=== PATIENT | female | born 1945 | race Asian ===

== ENCOUNTER 2018-06-04 14:27 | Emergency (ER) | payer MEDICARE, BC ==
[~2018-06-04] VITALS: Ht 160 cm; Wt 75.3 kg
[~2018-06-04 14:27] MED LIST: CLONIDINE HCL0.1 MG PO; GLIMEPIRIDE2 MG PO; HYDROXYZINE HCL25 MG PO; METFORMIN HCL500 M2 PO; PANTOPRAZOLE SO40 MG PO; PLAVIX75 MG PO; SENOKOT-S TABL1 EACH PO; SINGULAIR10 MG PO; TRIBENZOR 40-51 EAC1 PO; VESICARE5 MG PO; ZANTAC 7575 MG PO; ZOLPIDEM TARTRA10 MG PO
[2018-06-04] MEDS ORDERED: CLONIDINE HCL 0.2 MG TAB PO ONE (15:00)
--- NOTE | 2018-06-04 15:33 | Diagnostic Imaging Report ---
Radiographs of the right lower leg - 2 views HISTORY: Pain COMPARISON: None available. FINDINGS: Bones: Questionable nondisplaced distal right fibular fracture. Osseous alignment is within normal limits. Joints: Scattered degenerative change. Soft tissues: The soft tissues appear unremarkable. IMPRESSION: Questionable nondisplaced distal right fibular fracture. Ankle radiographs recommended. Signed by: Dr. Jorge Chapman M.D. on 06/04/2018 3:29 PM
--- NOTE | 2018-06-04 16:39 | Diagnostic Imaging Report ---
Radiographs of the right ankle - 3 views HISTORY: Pain COMPARISON: Radiographs of the lower leg from the same day FINDINGS: Bones: No acute displaced fracture. Osseous alignment is within normal limits. Joints: Chronic appearing deformity of the medial malleolus and distal fibula. Scattered degenerative change. Small inferior and posterior calcaneal bone spurs. Soft tissues: Mild soft tissue swelling. IMPRESSION: Chronic appearing deformity of the medial malleolus and distal fibula. Scattered degenerative change. Mild soft tissue swelling. Signed by: Dr. Jorge Chapman M.D. on 06/04/2018 4:35 PM
[2018-06-04] MEDS ORDERED: ULTRAM50 MG PO (17:01)
== END 2018-06-04 18:10 | disposition home or self-care (01) ==
LOC: ER 14:27
DX: M79.661 Pain in right lower leg (principal); S82.54XA Nondisplaced fracture of medial malleolus of right tibia, initial encounter for closed fracture; S82.491A Other fracture of shaft of right fibula, initial encounter for closed fracture; I10 Essential (primary) hypertension; E11.9 Type 2 diabetes mellitus without complications; Z86.73 Personal history of transient ischemic attack (TIA), and cerebral infarction without residual deficits
CPT/HCPCS: 93971; 99284

== ENCOUNTER → 2018-08-31 | Outpatient (CLI) | payer MEDICARE, BC ==
[~2018-08-31] MED LIST changes: +ULTRAM50 MG PO
--- NOTE | 2018-08-31 18:03 | Diagnostic Imaging Report ---
EXAMINATION: Head CT HISTORY: Frontal headaches, history of prior stroke COMPARISON: None. TECHNIQUE: Multidetector axial images were obtained without contrast from the foramen magnum to the vertex . The images were reconstructed using brain and bone algorithms. Thin section brain images were reformatted into coronal and sagittal planes. Image quality: Motion/streaking artifact limits the evaluation of the skull base and posterior cranial fossa. Dose modulation, iterative reconstruction, and/or weight based adjustment of the mA/kV was utilized to reduce the radiation dose to as low as reasonably achievable. FINDINGS: Parenchyma: 1. Cavitating encephalomalacia in the left putamen, likely the sequela from remote infarction, there is also adjacent left frontal bhandari radiata white matter hypodensity, related to associated gliosis. 2. No mass or hemorrhage. No CT evidence of acute territorial vascular insult. Extra-axial spaces:No abnormal density. No extra-axial fluid collections Brain volume: Normal for age. Ventricles: No hydrocephalus or displacement. Arteries: No density suggestive of thrombus. Dural sinuses: No abnormal density. Extra-axial spaces: No abnormal density. Foramen magnum: No mass, Chiari malformation, or basilar invagination. Sella: No obvious mass. Paranasal/mastoid sinuses: Imaged portions unremarkable. Skull/Scalp: No lytic or blastic lesions. No fractures. IMPRESSION: 1. No acute intracranial abnormalities. 2. 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 Signed by: Dr. Aubree Resendiz M.D. on 08/31/2018 6:00 PM
== END ==
LOC: CT 16:18
DX: G45.9 Transient cerebral ischemic attack, unspecified (principal)
CPT/HCPCS: 70450; 93880

== ENCOUNTER 2019-04-27 20:52 | Inpatient (IN) | payer MEDICARE, BC ==
[~2019-04-27] VITALS: Ht 160 cm; Wt 79.5 kg
--- OUTSIDE RECORDS SUMMARY | 2019-04-27 20:54 | XMS REPORT | Clinical Summary ---
Author Author RAMO [facility] Address Unknown Phone Unavailable Care Team Providers Care Vessel Specialist Name Role Phone PCP Unavailable Allergies Comments Active Allergy Reactions Severity Noted Date Adhesive 10/27/2018 Medications End Date Status Medication Sig Dispensed Refills Start Date Active pantoprazole (PROTONIX) Take 20 mg by 0 20 MG tablet mouth daily. Active metFORMIN (GLUCOPHAGE) Take 1,000 mg 0 1000 MG tablet by mouth 2 (two) times daily with breakfast and dinner. Active atorvastatin (LIPITOR) 10 Take 10 mg by 0 MG tablet mouth daily. Active clopidogrel (PLAVIX) 300 Take 300 mg 0 mg Tab by mouth once. Active glimepiride (AMARYL) 1 MG Take 1 mg by 0 tablet mouth every morning before breakfast. 11/06/2018 acetaminophen-codeine Take 1-2 30 tablet 0 (TYLENOL #3) 300-30 mg tablets by 9 per tablet mouth every 6 (six) hours as needed for up to 10 days. Max Daily Amount: 8 tablets 11/06/2018 cyclobenzaprine Take 1 tablet 20 tablet 0 (FLEXERIL) 10 MG tablet (10 mg total) 9 by mouth 2 (two) times daily as needed for Muscle spasms for up to 10 days. Active Problems Not on file Encounters Care Team Description Date Type Specialty Justina Rhodes MD Foot sprain, left, initial encounter (Primary Dx); Fall in home, initial encounter; Sprain of left knee, unspecified ligament, initial encounter 10/27/2018 Emergency Emergency Medicine 10/27/2018 Travel after 04/26/2018 Social History Date Tobacco Use Types Packs/Day Years Used Never Smoker Smokeless Tobacco: Never Used Alcohol Use Drinks/Week oz/Week Comments No Alcohol Habits Answer Date Recorded How often do you have a drink containing alcohol? Never 10/27/2018 How many drinks containing alcohol do you have on Not asked a typical day when you are drinking? How often do you have six or more drinks on one Not asked occasion? Sex Assigned at Date Recorded Not on file Industry Job Start Date Occupation Not on file Not on file Not on file Travel End Travel History Travel Start No recent travel history available. Last Filed Vital Signs Time Taken Vital Sign Reading 10/27/2018 5:00 AM INSTRUMENTATION AND CONTROLS TECHNICIAN Blood Pressure 169/79 10/27/2018 5:00 AM INSTRUMENTATION AND CONTROLS TECHNICIAN Pulse 70 10/27/2018 12:40 AM INSTRUMENTATION AND CONTROLS TECHNICIAN Temperature 36.6 C (97.9 F) 10/27/2018 5:00 AM INSTRUMENTATION AND CONTROLS TECHNICIAN Respiratory Rate 16 10/27/2018 5:00 AM INSTRUMENTATION AND CONTROLS TECHNICIAN Oxygen Saturation 98% - Inhaled Oxygen - Concentration 10/27/2018 12:34 AM INSTRUMENTATION AND CONTROLS TECHNICIAN Weight 74.8 kg (165 lb) 10/27/2018 12:34 AM INSTRUMENTATION AND CONTROLS TECHNICIAN Height 160 cm (5' 3") 10/27/2018 12:34 AM INSTRUMENTATION AND CONTROLS TECHNICIAN Body Mass Index 29.23 Plan of Treatment Not on file Procedures Comments Procedure Name Priority Date/Time Associated Diagnosis XR KNEE LEFT COMPLETE (4 STAT 10/27/2018 VIEWS) 2:27 AM INSTRUMENTATION AND CONTROLS TECHNICIAN XR FOOT LEFT 3 VIEW STAT 10/27/2018 2:27 AM INSTRUMENTATION AND CONTROLS TECHNICIAN POCT-GLUCOSE METER Routine 10/27/2018 12:46 AM INSTRUMENTATION AND CONTROLS TECHNICIAN after 04/26/2018 Results * XR foot 3 views left (10/27/2018 2:27 AM INSTRUMENTATION AND CONTROLS TECHNICIAN) Specimen Narrative Performed At FINAL REPORT [facility] RAD, FOOT, MIN 3 VIEWS, LEFT CLINICAL INDICATION:FALL COMPARISON: None FINDINGS: Frontal, lateral and oblique views of the left foot were obtained. There is no acute fracture or dislocation.There are degenerative changes of the mid foot.There is a plantar calcaneal spur.There is achilles tendon enthesopathy. IMPRESSION: No acute fracture or dislocation. Signed: Malathi Mock MD Report Verified Date/Time:10/27/2018 02:20:04 Reading Location: [address] Body Reading Room Procedure Note Interface, External Ris In - 10/27/2018 2:27 AM INSTRUMENTATION AND CONTROLS TECHNICIAN FINAL REPORT RAD, FOOT, MIN 3 VIEWS, LEFT CLINICAL INDICATION: FALL COMPARISON: None FINDINGS: Frontal, lateral and oblique views of the left foot were obtained. There is no acute fracture or dislocation. There are degenerative changes of the mid foot. There is a plantar calcaneal spur. There is achilles tendon enthesopathy. IMPRESSION: No acute fracture or dislocation. Signed: Malathi Mock MD Report Verified Date/Time: 10/27/2018 02:20:04 Reading Location: [address] Body Reading Room Performing Organization Address City/State/Zipcode Phone Number GE RIS * XR knee complete 4 views left (10/27/2018 2:27 AM INSTRUMENTATION AND CONTROLS TECHNICIAN) Specimen Narrative Performed At FINAL REPORT [facility] RAD, KNEE, COMPLETE (4 VIEWS), LEFT CLINICAL INDICATION:FALL COMPARISON: None FINDINGS: Frontal, lateral and oblique views of the left knee were obtained. There is no acute fracture dislocation. The joint spaces are maintained. There are tiny periarticular osteophytes. There is no suprapatellar effusion. IMPRESSION: No acute fracture or dislocation. Signed: Malathi Mock MD Report Verified Date/Time:10/27/2018 02:30:36 Reading Location: [address] Body Reading Room Procedure Note Interface, External Ris In - 10/27/2018 2:32 AM INSTRUMENTATION AND CONTROLS TECHNICIAN FINAL REPORT RAD, KNEE, COMPLETE (4 VIEWS), LEFT CLINICAL INDICATION: FALL COMPARISON: None FINDINGS: Frontal, lateral and oblique views of the left knee were obtained. There is no acute fracture dislocation. The joint spaces are maintained. There are tiny periarticular osteophytes. There is no suprapatellar effusion. IMPRESSION: No acute fracture or dislocation. Signed: Malathi Mock MD Report Verified Date/Time: 10/27/2018 02:30:36 Reading Location: [address] Body Reading Room Performing Organization Address City/State/Zipcode Phone Number GE RIS * POC-Glucose meter (10/27/2018 12:46 AM INSTRUMENTATION AND CONTROLS TECHNICIAN) POC-Glucose Meter 225 (H)Comment: TESTED AT [facility] 70 - 110 mg/dL [facility] [address] [facility] [address] Specimen Blood Performing Organization Address City/State/Zipcode Phone Number [facility] [address] [place] [address] [facility] after 04/26/2018 Insurance Payer Benefit Subscriber ID Type Phone Address Plan / Group MEDICARE MEDICARE A xxxxxxxxxxx Medicare B BLUE CROSS/BLUE SHIELD BCBS OS xxxxxxxxxxxx PPO [phone] [address] POS/PPO/[place] [address] O
--- OUTSIDE RECORDS SUMMARY | 2019-04-27 20:54 | XMS REPORT ---
Author Author [facility] Address Unknown Phone Unavailable Care Team Providers Care Director Gift Name Role Phone MALIKA EARLY Unavailable Unavailable Steve POST Unavailable Unavailable Problems This patient has no known problems. Allergies, Adverse Reactions, Alerts This patient has no known allergies or adverse reactions. Medications This patient has no known medications. Results Test Description Test Time Test Comments Text Results Atomic Results Result Comments RAD, KNEE, COMPLETE (4 VIEWS), LEFT 2018-10-27 02:30:00 Reason for exam:->FALL FINAL REPORT RAD, KNEE, COMPLETE (4 VIEWS), LEFT CLINICAL INDICATION: FALL COMPARISON: None FINDINGS: Frontal, lateral and oblique views of the left knee were obtained. There is no acute fracture dislocation. The joint spaces are maintained. There are tiny periarticular osteophytes. There is no suprapatellar effusion. IMPRESSION: No acute fracture or dislocation. Signed: Malathi Mock Verified Date/Time: 10/27/2018 02:30:36 Reading Location: [address] Body Reading Room , FOOT, MIN 3 VIEWS, LEFT 2018-10-27 02:20:00 Reason for exam:->FALL FINAL REPORT RAD, FOOT, MIN 3 VIEWS, LEFT CLINICAL INDICATION: FALL COMPARISON: None FINDINGS: Frontal, lateral and oblique views of the left foot were obtained. There is no acute fracture or dislocation. There are degenerative changes of the mid foot. There is a plantar calcaneal spur. There is achilles tendon enthesopathy. IMPRESSION: No acute fracture or dislocation. Signed: Malathi Mock Verified Date/Time: 10/27/2018 02:20:04 Reading Location: [address] Body Reading Room -GLUCOSE METER 2018-10-27 00:47:00 POC-GLUCOSE METER (BEAKER) (test lflf=[id number]) 225 mg/dL 70-110 TESTED AT [facility] [place] [address] CT BRAIN [id number] 17:58:00 [facility] [address] [address] Patient Name: DI YATES MR #: [id number] : 1945 Age/Sex: 73/F Req #: [id number] Adm Physician: Ordered by: MALIKA EARLY MD Report #: [id number] Location: CT Room/Bed: Procedure: [id number] CT/CT BRAIN WO Exam Date: Exam Time: REPORT STATUS: Signed EXAMINATION: Head CT H ISTORY: Frontal headaches, history of prior stroke COMPARISON: None. TECHNIQ UE: Multidetector axial images were obtained without contrast from the foramen magnum to the vertex . The images were reconstructed using brain and bone alg orithms. Thin section brain images were reformatted into coronal and sagittal planes. Image quality: Motion/streaking artifact limits the evaluation of the skull base and posterior cranial fossa. Dose modulation, iterative reconstr uction, and/or weight based adjustment of the mA/kV was utilized to reduce the radiation dose to as low as reasonably achievable. FINDINGS: Parenchyma: 1. Cavitating encephalomalacia in the left putamen, likely the sequela from remote infarction, there is also adjacent left frontal bhandari ra diata white matter hypodensity, related to associated gliosis. 2. No mass o r hemorrhage. No CT evidence of acute territorial vascular insult. Extra-axial spaces:No abnormal density. No extra-axial fluid collections Brain volume: Normal for age. Ventricles: No hydrocephalus or displ acement. Arteries: No density suggestive of thrombus. Dural sin uses: No abnormal density. Extra-axial spaces: No abnormal density. Foramen magnum: No mass, Chiari malformation, or basilar invagination. Sella: No obvious mass. Paranasal/mastoid sinuses: Imaged portions u nremarkable. Skull/Scalp: No lytic or blastic lesions. No fractures. IMPRESSION: 1. No acute intracranial abnormalities. 2. Chronic infa rct in the left putamen an adjacent bhandari radiata white matter. Signed b y: Dr. Joseph Resendiz M.D. on 08/31/2018 6:00 PM Dictated By: JOSEPH Rodríguez 99 Transcribed By: ROGELIO BOUDREAUX on 08/31/181799 COPY TO: MALIKA EARLY MD ANKLE 3 + VIEWS [id number] 16:32:00 [address] [address] Patient Name: DI YATES MR #: [id number] : 1945 Age/Sex: 73/F Req #: [id number] Adm Physician: Ordered by: ZIA POST MD Report #: [id number] Location: ER Room/Bed: Procedure: [id number] DX/ANKLE 3 + VIEWS RIGHT Exam Date: 06/04/18 Exam Time: 1618 REPORT STATUS: S igned Radiographs of the right ankle - 3 views HISTORY: Pain COMPARIS ON: Radiographs of the lower leg from the same day FINDINGS: Bones: No acute displaced fracture. Osseous alignment is within normal limits. Joints: Chronic appearing deformity of the medial malleolus and distal fibu la. Scattered degenerative change. Small inferior and posterior calcaneal bone spurs. Soft tissues: Mild soft tissue swelling. IMPRESSION: Chronic appearing deformity of the medial malleolus and distal fibula. Sca ttered degenerative change. Mild soft tissue swelling. Signed by: Dr. Jorge Bowman M.D. on 06/04/2018 4:35 PM Dictated By: JORGE BOWMAN MD, MD 163 Transcribed By: ANNA on 06/04/181634 COPY TO: ZIA POST MD LOWER LEG [id number] 15:28:00 [address] [place] [address] Patient Name: DI YATES MR #: [id number] : 1945 Age/Sex: 73/F Req #: [id number] Adm Physician: Ordered by: ZIA POST MD Report #: [id number] Location: ER Room/Bed: Procedure: [id number] DX/LOWER LEG RIGHT Exam Date: 06/04/18 Exam Time: 1510 REPORT STATUS: Signed Radiographs of the right lower leg - 2 views HISTORY: Pain COMPARISON: None available. FINDINGS: Bones: Questionable nondisplaced distal right fibular fracture. Osseous alignment is within normal limits. Join ts: Scattered degenerative change. Soft tissues: The soft tissues appea r unremarkable. IMPRESSION: Questionable nondisplaced distal right fi bular fracture. Ankle radiographs recommended. Signed by: Dr. Jorge Bowman M.D. on 06/04/2018 3:29 PM Dictated By: JORGE BOWMAN MD, MD Electronica lly Signed By: JORGE BOWMAN MD, MD on 06/04/18 1529 Transcribed By: ANNA on 06/04/18 1529 COPY TO: ZIA POST MD
[2019-04-27] MEDS ORDERED: ASPIRIN 81 MG CHEW TAB PO ONE ×2 (21:00→22:15)
[2019-04-27 21:30] LABS: BASOPHILS % 0.3 % (0.0-1.0); BILIRUBIN,URINE NEGATIVE (NEGATIVE); CLARITY,URINE SL CLOUDY (CLEAR); COLOR,URINE YELLOW (YELLOW); EOSINOPHILS # (AUTO) 0.1 (0.0-0.4); EOSINOPHILS % 1.6 % (0.0-6.0); HEMATOCRIT 33.1 % (34.2-44.1); HEMOGLOBIN 11.1 g/dL (12.0-16.0); KETONES,URINE NEGATIVE (NEGATIVE); LEUKOCYTE ESTERASE ,URINE NEGATIVE (NEGATIVE); LYMPHOCYTES # (AUTO) 2.2 (1.0-3.2); LYMPHOCYTES % 29.2 % (18.0-39.1); MEAN CORPUSCULAR HEMOGLOBIN 28.4 pg (28-32); MEAN CORPUSCULAR HGB CONC 33.5 g/dL (31-35); MEAN CORPUSCULAR VOLUME 84.7 fL (81-99); MONOCYTES # (AUTO) 0.6 (0.2-0.8); NEUTROPHILS # (AUTO) 4.5 (2.1-6.9); NEUTROPHILS % 60.5 % (38.7-80.0); NITRITE,URINE NEGATIVE (NEGATIVE); PLATELET COUNT 264 x10e3/uL (140-360); PROTEIN,URINE DIPSTICK 1+ (NEGATIVE); RED BLOOD COUNT 3.91 x10e6/uL (3.6-5.1); RED CELL DISTRIBUTION WIDTH 13.2 % (11.7-14.4); URINE UROBILINOGEN 0.2 mg/dL (0.2 - 1)
[2019-04-27 21:44] LABS: BACTERIA,URINE FEW /HPF; EPITHELIAL CELLS,URINE FEW /LPF; WBC,URINE (MAN) 0-5 /HPF (0-5)
[2019-04-27 21:45] LABS: ALBUMIN 3.8 g/dL (3.5-5.0); ALBUMIN/GLOBULIN RATIO 1.2 (0.8-2.0); ANION GAP 16.5 mmol/L (8-16); CREATININE, SERUM 1.01 mg/dL (0.57-1.11); POTASSIUM 3.5 mmol/L (3.5-5.1)
[2019-04-27 21:51] LABS: CREATINE KINASE MB 2.7 ng/mL (0-5.0)
--- NOTE | 2019-04-27 22:03 | Diagnostic Imaging Report ---
A single frontal view of the chest. HISTORY: Chest pain COMPARISON: None available. DISCUSSION: Portable technique, limits sensitivity of the exam. Soft tissue attenuation partially limits sensitivity of the exam. Overlying monitoring leads. Tubes/Lines: None Lungs and pleura: The lungs are well inflated. No evidence of a consolidative pneumonia or pulmonary alveolar edema. No definite pleural effusion or pneumothorax is identified. Heart and mediastinum: The cardiac silhouette and central pulmonary vasculature appear(s) mildly prominent. Bones and soft tissues: Mild chronic appearing deformity of the right distal clavicle, correlate for history of remote fracture. IMPRESSION: 1. Borderline cardiomegaly and mild central pulmonary vascular congestion. 2. Mild chronic appearing deformity of the right distal clavicle, correlate for history of remote fracture. Signed by: Dr. Oniel Sharma D.O., M.M.M. on 04/27/2019 10:00 PM
[2019-04-27] MEDS ORDERED: DEXTROSE 50% SYRINGE 50 ML IV PRN (22:15)
[2019-04-27] MEDS ORDERED: ONDANSETRON HCL INJ 2MG/ML 2ML 2 MG/ML VIAL IV PRN (22:15)
[2019-04-27] MEDS ORDERED: SODIUM CHLORIDE FLUSH 10 ML SYR INJ PRN (22:15)
--- OUTSIDE RECORDS SUMMARY | 2019-04-27 22:35 | XMS REPORT | Clinical Summary ---
Author Author RAMO [facility] Address Unknown Phone Unavailable Care Team Providers Care Wood Form Builder Name Role Phone PCP Unavailable Allergies Comments [...] Taken Vital Sign Reading 10/27/2018 5:00 AM CERTIFIED PARALEGAL Blood Pressure 169/79 10/27/2018 5:00 AM CERTIFIED PARALEGAL Pulse 70 10/27/2018 12:40 AM CERTIFIED PARALEGAL Temperature 36.6 C (97.9 F) 10/27/2018 5:00 AM CERTIFIED PARALEGAL Respiratory Rate 16 10/27/2018 5:00 AM CERTIFIED PARALEGAL Oxygen Saturation 98% - Inhaled Oxygen - Concentration 10/27/2018 12:34 AM CERTIFIED PARALEGAL Weight 74.8 kg (165 lb) 10/27/2018 12:34 AM CERTIFIED PARALEGAL Height 160 cm (5' 3") 10/27/2018 12:34 AM CERTIFIED PARALEGAL Body Mass Index 29.23 Plan of Treatment Not on file Procedures Comments Procedure Name Priority Date/Time Associated Diagnosis XR KNEE LEFT COMPLETE (4 STAT 10/27/2018 VIEWS) 2:27 AM CERTIFIED PARALEGAL XR FOOT LEFT 3 VIEW STAT 10/27/2018 2:27 AM CERTIFIED PARALEGAL POCT-GLUCOSE METER Routine 10/27/2018 12:46 AM CERTIFIED PARALEGAL after 04/26/2018 Results * XR foot 3 views left (10/27/2018 2:27 AM CERTIFIED PARALEGAL) Specimen Narrative Performed At FINAL REPORT [facility] RAD, FOOT, MIN 3 VIEWS, LEFT CLINICAL INDICATION:FALL COMPARISON: None FINDINGS: Frontal, lateral and oblique views of the left foot were obtained. There is no acute fracture or dislocation.There are degenerative changes of the mid foot.There is a plantar calcaneal spur.There is achilles tendon enthesopathy. IMPRESSION: No acute fracture or dislocation. Signed: Malathi Mock MD Report Verified Date/Time:10/27/2018 02:20:04 Reading Location: [address] Body Reading Room Procedure Note Interface, External Ris In - 10/27/2018 2:27 AM CERTIFIED PARALEGAL FINAL REPORT RAD, FOOT, MIN 3 VIEWS, [...] Report Verified Date/Time: 10/27/2018 02:20:04 Reading Location: [address] Body Reading Room Performing Organization Address City/State/Zipcode Phone Number GE RIS * XR knee complete 4 views left (10/27/2018 2:27 AM CERTIFIED PARALEGAL) Specimen Narrative Performed At FINAL REPORT [facility] RAD, KNEE, COMPLETE (4 VIEWS), LEFT CLINICAL INDICATION:FALL COMPARISON: None FINDINGS: Frontal, lateral and oblique views of the left knee were obtained. There is no acute fracture dislocation. The joint spaces are maintained. There are tiny periarticular osteophytes. There is no suprapatellar effusion. IMPRESSION: No acute fracture or dislocation. Signed: Malathi Mock MD Report Verified Date/Time:10/27/2018 02:30:36 Reading Location: [address] Body Reading Room Procedure Note Interface, External Ris In - 10/27/2018 2:32 AM CERTIFIED PARALEGAL FINAL REPORT RAD, KNEE, COMPLETE (4 VIEWS), LEFT CLINICAL INDICATION: FALL COMPARISON: None FINDINGS: Frontal, lateral and oblique views of the left knee were obtained. There is no acute fracture dislocation. The joint spaces are maintained. There are tiny periarticular osteophytes. There is no suprapatellar effusion. IMPRESSION: No acute fracture or dislocation. Signed: Malathi Mock MD Report Verified Date/Time: 10/27/2018 02:30:36 Reading Location: [address] Body Reading Room Performing Organization Address City/State/Zipcode Phone Number GE RIS * POC-Glucose meter (10/27/2018 12:46 AM CERTIFIED PARALEGAL) POC-Glucose Meter 225 (H)Comment: TESTED AT [facility] 70 - 110 mg/dL [facility] [address] [facility] [address] Specimen Blood Performing Organization Address City/State/Zipcode Phone Number [facility] [address] [place] [address] [facility] after 04/26/2018 Insurance Payer Benefit Subscriber ID Type Phone Address Plan / Group MEDICARE MEDICARE A xxxxxxxxxxx Medicare B BLUE CROSS/BLUE SHIELD BCBS OS xxxxxxxxxxxx PPO [phone] [address] POS/PPO/[place] [address] O
[2019-04-27 22:39] VITALS: BP 146/70
[2019-04-27] MEDS: FAMOTIDINE 20 MG TAB PO SCH (22:58)
[2019-04-28] VITALS (15 sets, daily range): BP systolic 131–217; BP diastolic 62–88
[2019-04-28] MEDS: SODIUM CHLORIDE 0.9% 1000ML 1,000 ML IV SCH ×4 (00:15→19:27)
--- NOTE | 2019-04-28 06:45 | NUR ---
ROUNDED WITH FLATLOCK SEWING MACHINE OPERATOR NURSE, PATIENT RESTING COMFORTABLY AND IN NO DISTRESS. CALL SOLO WITHIN REACH AND BED IN LOWEST POSITION.
--- NOTE | 2019-04-28 07:01 | NUR ---
BEDSIDE REPORT GIVEN TO HEMA CHA AT THIS TIME.
[2019-04-28 07:04] LABS: BASOPHILS % 0.3 % (0.0-1.0); EOSINOPHILS # (AUTO) 0.2 (0.0-0.4); EOSINOPHILS % 2.7 % (0.0-6.0); HEMATOCRIT 30.3 % (34.2-44.1); LYMPHOCYTES # (AUTO) 1.9 (1.0-3.2); LYMPHOCYTES % 32.6 % (18.0-39.1); MEAN CORPUSCULAR HEMOGLOBIN 28.1 pg (28-32); MEAN CORPUSCULAR VOLUME 85.1 fL (81-99); MONOCYTES # (AUTO) 0.5 (0.2-0.8); MONOCYTES % 8.8 % (4.4-11.3); NEUTROPHILS # (AUTO) 3.2 (2.1-6.9); NEUTROPHILS % 55.3 % (38.7-80.0); PLATELET COUNT 226 x10e3/uL (140-360); RED BLOOD COUNT 3.56 x10e6/uL (3.6-5.1); RED CELL DISTRIBUTION WIDTH 13.1 % (11.7-14.4)
[2019-04-28] MEDS: INSULIN REGULAR, HUMAN 100 UNIT/1 ML 3ML VIAL SQ SCH ×4 (07:30→20:25)
[2019-04-28 07:47] LABS: ALANINE AMINOTRANSFERASE 26 IU/L (0-55); ALBUMIN 3.2 g/dL (3.5-5.0); ALBUMIN/GLOBULIN RATIO 1.2 (0.8-2.0); ALKALINE PHOSPHATASE 41 IU/L (40-150); ANION GAP 11.5 mmol/L (8-16); BLOOD UREA NITROGEN 17 mg/dL (7-26); BUN/CREATININE RATIO 19 (6-25); CALCIUM 8.5 mg/dL (8.4-10.2); CARBON DIOXIDE 24 mmol/L (22-29); CHLORIDE 104 mmol/L (98-107); CHOL/HDL RATIO 4.3 (3.0-3.6); CHOLESTEROL 253 MD/DL (0-199); CREATININE, SERUM 0.91 mg/dL (0.57-1.11); EST GLOMERULAR FILTRATION RATE > 60 ML/MIN (60-); GLUCOSE 246 mg/dL (74-118); HDL CHOLESTEROL 59 MG/DL (40-60); LDL CHOLESTEROL 161 MG/DL (60-130); POTASSIUM 3.5 mmol/L (3.5-5.1); SODIUM 136 mmol/L (136-145); TRIGLYCERIDES 166 MG/DL (0-149)
[2019-04-28 07:59] LABS: CREATINE KINASE MB 1.7 ng/mL (0-5.0)
[2019-04-28] MEDS ORDERED: LIDOCAINE HCL 2% LOCAL 20 ML VIAL ONE (08:18)
[2019-04-28] MEDS ORDERED: MIDAZOLAM HCL 2 MG/2 ML VIAL ONE (08:18)
[2019-04-28] MEDS ORDERED: FENTANYL CITRATE/PF 100MCG/2 ML INJ ONE (08:18)
[2019-04-28] MEDS ORDERED: SODIUM CHLORIDE 0.9% 1000ML 1,000 ML ONE (08:19)
[2019-04-28] MEDS ORDERED: HEPARIN SOD/SOD CHLORIDE 2,000 ML ONE (08:19)
[2019-04-28] MEDS ORDERED: IOPAMIDOL 370 MG/ML 200 ML INFUS..BTL INJ ONE (08:19)
--- NOTE | 2019-04-28 08:40 | NUR ---
PATIENT ALERT AND ORIENTED, LEAVING FOR PARAPROFESSIONAL AIDE AT THIS TIME [facility] BED.
[2019-04-28] MEDS: ASPIRIN 81 MG ENTERIC COATED PO SCH (08:56)
[2019-04-28] MEDS ORDERED: BIVALRIUDIN 250 MG/VIAL VIAL IV ONE (09:16)
[2019-04-28] MEDS ORDERED: SODIUM CHLORIDE 0.9% 50ML 50 ML ONE (09:16)
[2019-04-28] MEDS ORDERED: CLOPIDOGREL BISULFATE 75 MG TAB ONE (10:03)
[2019-04-28] MEDS ORDERED: ASPIRIN 81 MG CHEW TAB ONE (10:03)
[2019-04-28] MEDS ORDERED: NITROGLYCERIN 400 MCG/SPRAY 4.9 GM BTL ONE (10:07)
--- NOTE | 2019-04-28 10:10 | NUR ---
1010 bedside report received from HEMA Grossman. Alert oriented and appropriate, PERRLA, respirations even and unlabored to room air. Pulses x4 extremities equal and strong. Pedal pulses PT/DP XXXXX and marked. Cap fill brisk < 3 sec. Rt sheath 6fr intact no gross issues pain pallor pressure or dysrhythmia. [facility] Dr Rafy Niño stentx x2 RCA. Had episode in slab conditioner supervisor lisa to 30 HR with CP requiring nasal NTG spray x1 spontaneous HR to bradycardia w/o ectopics. Skin warm and dry integrity appears D/I. IV 20g to XXX presents healthy w/o s/s of infiltration or complaint. Abdomen soft and supple. pt offered toileting, Assist need to urinate . No personal affects with patient. No Family at bedside. Pt verbalizes understanding POC. Currently w/o complaint of pain or need. Recheck ACT 11am last act 179. zulma/hema
[2019-04-28] MEDS ORDERED: ZOLPIDEM TARTRATE 5 MG TAB PO PRN (10:15)
[2019-04-28] MEDS: FAMOTIDINE 20 MG TAB PO SCH ×2 (10:15→20:27)
[2019-04-28] MEDS ORDERED: CLONIDINE HCL 0.1 MG TAB PO PRN (10:15)
--- NOTE | 2019-04-28 10:45 | NUR ---
1045 sheath pull in progress [facility] Explosive Ordnance Disposal Manager pullerRolanda Rn Atropine at bedside. stable vs and ekg 1045 HR 53 182/99 1050 Hr 52 179/72 1055 HR 53 183/99 1100 HR 52 177/99 1105 HR 55 178/92 Report called to floor staff. Stasis achieved at 1105 down time till 505pm ds/rn
--- NOTE | 2019-04-28 11:05 | NUR ---
1105a Sheath pull completed .Stasis achieved. PPx4.(down time 1705pm) states CP 4/10 was 10/10 in Optometrist Assistant .NTG spray given x1 by Mila Grossman. [facility] completed with stentx2 DR Tello . Down time No gross issues pain, pallor, pressure or dysrhythmia.(Baseline 55-58HR) Rt groin gauze and wedge pressure dressing and Microfoam tape.Report phoned to staffing operations manager 106Rm and transported via Zoll monitor and RN x2.per bed. Pt did void 400cc in clear urine via bedpan.Pt understands flat time and importance. Aware of POC. Iv to left hand infusing w/o s/s infiltration. ds/rn
--- NOTE | 2019-04-28 11:20 | NUR ---
report received from cath lab tech, patient to arrive back to unit via hospital bed to be on bedrest for 6 hours ending at 1705.
[2019-04-28] MEDS: OLMESARTAN 20 MG TAB PO SCH (11:30)
[2019-04-28] MEDS: AMLODIPINE BESYLATE 5 MG TAB PO SCH (11:30)
--- NOTE | 2019-04-28 11:30 | NUR ---
patient arrived back to unit via hospital bed, alert and oriented. right groin bandage dry and in tact, area is soft and no hematoma noted. patient log rolled onto bed gamboa and returned to resting position. patient verbalized understanding for bedrest until 1705 and agrees to keep legs straight. call benton within reach and bed in lowest position.
[2019-04-28] MEDS: HYDROCODONE/APAP 5MG-325MG TAB PO PRN (12:00)
[2019-04-28 15:14] LABS: CREATINE KINASE MB 2.1 ng/mL (0-5.0)
--- NOTE | 2019-04-28 15:17 | Consultation ---
DATE OF CONSULTATION: Cardiac Consultation REASON FOR CONSULTATION: Chest pain. 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 The patient came for an evaluation in our office in February 2019. She is complaining of exertional angina with chest pressure and chest tightness despite being not very active secondary to her right body sided weakness. Her symptoms were progressively worse. She had on 03/03/2019, nuclear cardiac stress test, which showed the presence of moderate partially reversible inferolateral wall defect with normal left ventricular ejection fraction. The patient also during that study had motion artifact. Regardless, we treated the patient medically, she did well. She called me complaining of more chest pain. In view of that and the patient being on appropriate medication, and after discussion with her and her sister over the phone, the patient wants to proceed with cardiac catheterization because of progressively worse symptoms. The patient is scheduled, but then she needs to reschedule and yesterday, she showed in the emergency room complaining of severe chest pain, chest pressure, and chest tightness, admitted to Dr. Mariscal. Cardiac consultation is obtained. REVIEW OF SYSTEMS: GENERAL: Limited activity secondary to her stroke with poor exercise tolerance. HEENT: Occasional headache. Decreased hearing. PULMONARY AND CARDIAC: As per acute illness, class 3 shortness of breath, chest pressure, chest tightness, progressively worse, possible sleep apnea. No orthopnea. No paroxysmal nocturnal dyspnea. GI: No hematemesis. No melena. HEMATOLOGY: No easy bruising or bleeding. : No hematuria. MUSCULOSKELETAL: Back pain, knee pain. Peripheral vascular leg swelling and leg edema. Limited activity with possible claudication, possible back pain. NEUROLOGICAL: Back pain with radiculopathy, very abnormal gait, using a walker, right-sided body weakness. PAST MEDICAL HISTORY: 1. Diabetes mellitus. 2. CVA with residual right body sided weakness. 3. Hypertension. 4. Hyperlipidemia. 5. Back surgery x2. 6. Coronary artery disease with stent or some procedure done in 2014. She cannot recall details. SOCIAL HISTORY: The patient lives by herself. She is a retired business owner operator tanker truck driver. She is non-alcohol drinker. She stopped smoking in 1998. FAMILY HISTORY: Mother of complication of diabetes mellitus at age 76. She had "blood clot all over." Father at age 74 with myocardial infarction. One brother and 3 sisters, 1 healthy son. Her brother of myocardial infarction at age 58. Her sister is diabetic. HOME MEDICATIONS: 1. Plavix 75 mg a day. 2. Crestor 10 mg a day. 3. Fenofibrate 145 mg a day. 4. Benicar/amlodipine/hydrochlorothiazide 40/10/25 one tablet a day. 5. Metformin 1000 mg daily. 6. Glimepiride 2 mg a day. 7. Protonix 40 mg a day. PHYSICAL EXAMINATION: VITAL SIGNS: Height 5 feet 3 inches, weight of 154 pounds, blood pressure 140/60, heart rate of 50, and respiratory rate of 18. HEENT: Pupils are reactive. NECK: No elevation of jugular venous pulsation. CHEST: Decreased air entry and bilateral crackles. HEART: PMI 5th left intercostal space. Normal first and second heart sounds. ABDOMEN: Soft with good bowel sounds. EXTREMITIES: No cyanosis. No clubbing. No edema. NEUROLOGIC: Decreased hearing and right body sided weakness with limited movement and gait abnormality using a walker. LABORATORY DATA: Sodium of 136, potassium 3.5, BUN of 17, and creatinine of 0.9. White blood cell count of 5.8, hemoglobin of 10, hematocrit 30%, and platelet count of 226,000. Triglycerides of 166, cholesterol of 253, HDL of 55, and LDL of 161. IMPRESSION AND PLAN: 1. Known coronary artery disease, status post prior form of intervention in 2014 having angina. 2. Hypertension. 3. Diabetes mellitus. 4. History of stroke with right body sided weakness. 5. Hypercholesterolemia. 6. Limited activity. 7. Degenerative joint disease and pain of the lower extremities. 8. The patient admitted from the emergency room with worsening angina. Acute Coronary Syndrome We will proceed with cardiac catheterization. Procedure risks, benefits, and alternatives are discussed and explained. MD SETH Acharya/TOM /[id number] MTDD
[2019-04-28] MEDS: CLONIDINE HCL 0.1 MG TAB PO SCH ×2 (15:40→20:27)
[2019-04-28] MEDS: GLIMEPIRIDE 2 MG TAB PO SCH (17:00)
[2019-04-28] MEDS: METOPROLOL TARTRATE 25 MG TAB PO SCH (17:00)
[2019-04-28] MEDS: METFORMIN HCL 500 MG TAB CR PO SCH (17:00)
[2019-04-28] MEDS: KETOROLAC TROMETHAMINE 30 MG/ML VIAL IM SCH ×2 (17:00→23:05)
--- NOTE | 2019-04-28 17:17 | NUR ---
patient alert and oriented, pedal pulses are present, no hematoma or drainage noted to groin entry site. Patient HOB raised 30 degrees with no complaints of pain since the bedrest is now complete.
--- NOTE | 2019-04-28 18:45 | NUR ---
rounded with lieutenant shift supervisor nurse, patient resting comfortably and in no distress. call benton within reach and bed in lowest position.
[2019-04-28] MEDS: ONDANSETRON HCL INJ 2MG/ML 2ML 2 MG/ML VIAL IV PRN (19:06)
[2019-04-28] MEDS: CRESTOR 10MG PO SCH (20:27)
[2019-04-28] MEDS: MONTELUKAST SODIUM 10 MG TAB PO SCH ×3 (20:27→20:38)
[2019-04-29] MEDS: SODIUM CHLORIDE 0.9% 1000ML 1,000 ML IV SCH ×2 (03:20→16:11)
[2019-04-29 04:42] VITALS: BP 120/58
[2019-04-29] MEDS: KETOROLAC TROMETHAMINE 30 MG/ML VIAL IM SCH ×4 (05:02→23:48)
[2019-04-29 05:42] LABS: BASOPHILS % 0.2 % (0.0-1.0); EOSINOPHILS # (AUTO) 0.1 (0.0-0.4); EOSINOPHILS % 2.1 % (0.0-6.0); HEMATOCRIT 29.5 % (34.2-44.1); HEMOGLOBIN 9.4 g/dL (12.0-16.0); LYMPHOCYTES # (AUTO) 1.9 (1.0-3.2); LYMPHOCYTES % 29.2 % (18.0-39.1); MEAN CORPUSCULAR HEMOGLOBIN 27.4 pg (28-32); MEAN CORPUSCULAR HGB CONC 31.9 g/dL (31-35); MONOCYTES # (AUTO) 0.5 (0.2-0.8); NEUTROPHILS % 61.2 % (38.7-80.0); PLATELET COUNT 212 x10e3/uL (140-360); RED BLOOD COUNT 3.43 x10e6/uL (3.6-5.1); RED CELL DISTRIBUTION WIDTH 13.1 % (11.7-14.4)
[2019-04-29 06:00] LABS: ALANINE AMINOTRANSFERASE 21 IU/L (0-55); ALBUMIN 2.8 g/dL (3.5-5.0); ALBUMIN/GLOBULIN RATIO 1.2 (0.8-2.0); ALKALINE PHOSPHATASE 40 IU/L (40-150); ANION GAP 11.8 mmol/L (8-16); BLOOD UREA NITROGEN 17 mg/dL (7-26); BUN/CREATININE RATIO 19 (6-25); CALCIUM 7.9 mg/dL (8.4-10.2); CARBON DIOXIDE 24 mmol/L (22-29); CHLORIDE 103 mmol/L (98-107); CREATININE, SERUM 0.88 mg/dL (0.57-1.11); EST GLOMERULAR FILTRATION RATE > 60 ML/MIN (60-); GLUCOSE 183 mg/dL (74-118); POTASSIUM 3.8 mmol/L (3.5-5.1); SODIUM 135 mmol/L (136-145)
[2019-04-29] MEDS: ONDANSETRON HCL INJ 2MG/ML 2ML 2 MG/ML VIAL IV PRN (06:53)
[2019-04-29] MEDS: INSULIN REGULAR, HUMAN 100 UNIT/1 ML 3ML VIAL SQ SCH ×4 (07:30→21:16)
[2019-04-29] MEDS: GLIMEPIRIDE 2 MG TAB PO SCH ×2 (07:30→17:18)
--- NOTE | 2019-04-29 07:35 | NUR ---
Received patient this morning, a/ox3, in bed and was medicated for pain, c/o dizziness x2 days and out going nurse states sales development associate aware, will f/u concerns, no resp distress, denies chest pains, call light within reach and aware to call for assistance, will monitor.
[2019-04-29] MEDS: METFORMIN HCL 500 MG TAB CR PO SCH ×2 (08:00→17:18)
[2019-04-29] MEDS ORDERED: CLOPIDOGREL BISULFATE 75 MG TAB PO SCH (09:00)
[2019-04-29] MEDS ORDERED: FAMOTIDINE 20 MG TAB PO SCH (09:00)
[2019-04-29] MEDS: METOPROLOL TARTRATE 25 MG TAB PO SCH (09:00)
[2019-04-29] MEDS: ASPIRIN 81 MG ENTERIC COATED PO SCH (09:30)
[2019-04-29] MEDS: HYDROXYZINE HCL 25 MG TAB PO SCH (09:30)
[2019-04-29] MEDS: OLMESARTAN 20 MG TAB PO SCH (09:31)
[2019-04-29] MEDS: CLONIDINE HCL 0.1 MG TAB PO SCH ×3 (09:32→21:16)
[2019-04-29] MEDS: SOLIFENACIN SUCCINATE 5 MG TAB PO SCH (09:33)
[2019-04-29] MEDS: CLOPIDOGREL BISULFATE 75 MG TAB PO SCH (09:33)
[2019-04-29] MEDS: AMLODIPINE BESYLATE 5 MG TAB PO SCH (09:33)
[2019-04-29] MEDS: PANTOPRAZOLE SOD 40 MG TABEC PO SCH (09:33)
--- NOTE | 2019-04-29 09:50 | NUR ---
Rounds by attending at this time and notified of dizziness and history of CVA, orders for PT and may possibly discharge after working with PT.
--- NOTE | 2019-04-29 09:52 | NUR ---
Attending will f/u with patient on having home health services from the office.
--- NOTE | 2019-04-29 09:54 | NUR ---
Orders per Dr. Matthieu Mariscal to cancel consult to Dr. Gonzalez
[2019-04-29] MEDS: FAMOTIDINE 20 MG TAB PO SCH ×2 (10:15→21:56)
[2019-04-29] MEDS: TRAMADOL HCL 50 MG TAB PO PRN (10:30)
[2019-04-29 11:20] VITALS: BP 137/62
--- NOTE | 2019-04-29 11:25 | NUR ---
Patient OOB and ambulated with PT, c/o some nausea and will medicate. In bed at this time and call light within reach.
[2019-04-29 11:27] VITALS: BP 138/63
--- NOTE | 2019-04-29 11:42 | NUR ---
Patient alert rounds by copy operator and reconciled all medications this morning. PT worked with patient and she ambulated 100 feet and will monitor.
[2019-04-29] MEDS ORDERED: CRESTOR10 MG PO (11:49)
[2019-04-29] MEDS ORDERED: ASPIR 8181 MG PO (11:49)
--- NOTE | 2019-04-29 12:16 | NUR ---
S/P PTCA WITH STENTS X 2 P.T. EVAL RECOMMENDS SNF CALL PLACED TO DR Steve EARLY; AWAIT ORDERS
[2019-04-29] MEDS: HYDROCODONE/APAP 5MG-325MG TAB PO PRN (12:20)
--- NOTE | 2019-04-29 14:14 | NUR ---
Orders in place per Dr. Mariscal for [facility] eval
[2019-04-29 15:56] VITALS: BP 128/60
[2019-04-29 20:00] VITALS: BP 130/61
[2019-04-29] MEDS: MONTELUKAST SODIUM 10 MG TAB PO SCH ×2 (21:00→21:16)
[2019-04-29] MEDS: CRESTOR 10MG PO SCH (21:16)
[2019-04-29 22:08] VITALS: BP 132/63
[2019-04-30] VITALS (7 sets, daily range): BP systolic 133–146; BP diastolic 60–68
[2019-04-30] MEDS: SODIUM CHLORIDE 0.9% 1000ML 1,000 ML IV SCH (02:11)
[2019-04-30] MEDS: KETOROLAC TROMETHAMINE 30 MG/ML VIAL IM SCH ×3 (05:33→17:17)
[2019-04-30] MEDS: GLIMEPIRIDE 2 MG TAB PO SCH ×2 (07:30→16:53)
[2019-04-30] MEDS: INSULIN REGULAR, HUMAN 100 UNIT/1 ML 3ML VIAL SQ SCH ×4 (07:30→20:56)
[2019-04-30] MEDS: METFORMIN HCL 500 MG TAB CR PO SCH ×2 (08:09→16:53)
[2019-04-30] MEDS: OLMESARTAN 20 MG TAB PO SCH (09:33)
[2019-04-30] MEDS: SOLIFENACIN SUCCINATE 5 MG TAB PO SCH (09:33)
[2019-04-30] MEDS: CLONIDINE HCL 0.1 MG TAB PO SCH (09:33)
[2019-04-30] MEDS: PANTOPRAZOLE SOD 40 MG TABEC PO SCH (09:33)
[2019-04-30] MEDS: AMLODIPINE BESYLATE 5 MG TAB PO SCH ×2 (09:33→17:17)
[2019-04-30] MEDS: ASPIRIN 81 MG ENTERIC COATED PO SCH (09:33)
[2019-04-30] MEDS: CLOPIDOGREL BISULFATE 75 MG TAB PO SCH (09:33)
[2019-04-30] MEDS: HYDROXYZINE HCL 25 MG TAB PO SCH (09:33)
[2019-04-30] MEDS: FAMOTIDINE 20 MG TAB PO SCH ×2 (10:15→22:45)
[2019-04-30 10:24] LABS: BASOPHILS % 0.2 % (0.0-1.0); EOSINOPHILS # (AUTO) 0.1 (0.0-0.4); EOSINOPHILS % 1.8 % (0.0-6.0); HEMATOCRIT 29.9 % (34.2-44.1); HEMOGLOBIN 9.9 g/dL (12.0-16.0); LYMPHOCYTES # (AUTO) 1.5 (1.0-3.2); LYMPHOCYTES % 24.9 % (18.0-39.1); MEAN CORPUSCULAR HEMOGLOBIN 28.2 pg (28-32); MEAN CORPUSCULAR HGB CONC 33.1 g/dL (31-35); MEAN CORPUSCULAR VOLUME 85.2 fL (81-99); MONOCYTES # (AUTO) 0.5 (0.2-0.8); MONOCYTES % 8.3 % (4.4-11.3); NEUTROPHILS # (AUTO) 3.9 (2.1-6.9); PLATELET COUNT 207 x10e3/uL (140-360); RED BLOOD COUNT 3.51 x10e6/uL (3.6-5.1); RED CELL DISTRIBUTION WIDTH 13.2 % (11.7-14.4)
[2019-04-30 10:41] LABS: ALBUMIN 2.8 g/dL (3.5-5.0); ALBUMIN/GLOBULIN RATIO 1.1 (0.8-2.0); ANION GAP 10.8 mmol/L (8-16); CALCIUM 8.3 mg/dL (8.4-10.2); CREATININE, SERUM 0.94 mg/dL (0.57-1.11); POTASSIUM 3.8 mmol/L (3.5-5.1)
[2019-04-30] MEDS ORDERED: LACTULOSE SYRUP 20 GM/30 ML UDC PO ONE (11:00)
--- NOTE | 2019-04-30 12:25 | NUR ---
EDUCATED ABOUT IMM, SIGNED, FILED IN CHART, WITH COPY LEFT WITH FAMILY AT BEDSIDE.
[2019-04-30] MEDS: TRAMADOL HCL 50 MG TAB PO PRN (15:06)
--- NOTE | 2019-04-30 15:06 | NUR ---
Patient OOB and ambulated with PT at this time, slow steady gait, c/o some back pains and medicated as ordered, no BM yet post lactulose, will monitor.
--- NOTE | 2019-04-30 18:57 | NUR ---
Received report for oncoming nurse. call light within reach. Patient asleep in bed.
--- NOTE | 2019-04-30 20:20 | NUR ---
Called and talked to Dr. Swan who is covering for Dr. Matthieu Mariscal about the patient complaining of left upper abdomen pain. Dr. Swan said to give the patient pain medication and do a CT abdomen without contrast.
[2019-04-30] MEDS: MONTELUKAST SODIUM 10 MG TAB PO SCH (20:55)
[2019-04-30] MEDS: CRESTOR 10MG PO SCH (20:55)
[2019-04-30] MEDS: HYDROCODONE/APAP 5MG-325MG TAB PO PRN (20:57)
[2019-05-01] VITALS: BP 131/60
[2019-05-01 04:00] VITALS: BP 133/75
[2019-05-01] MEDS: KETOROLAC TROMETHAMINE 30 MG/ML VIAL IM SCH ×3 (06:00→11:54)
--- NOTE | 2019-05-01 07:10 | NUR ---
Gave report to oncoming nurse. call light within reach. Patient sitting in the chair
[2019-05-01] MEDS: INSULIN REGULAR, HUMAN 100 UNIT/1 ML 3ML VIAL SQ SCH ×4 (07:30→21:27)
[2019-05-01] MEDS: GLIMEPIRIDE 2 MG TAB PO SCH ×2 (07:30→17:45)
[2019-05-01 07:48] VITALS: BP 201/84
--- NOTE | 2019-05-01 07:59 | NUR ---
Received patient this morning, a/ox3, in bed and no apparent distress, call light within reach and will monitor.
[2019-05-01] MEDS: AMLODIPINE BESYLATE 5 MG TAB PO SCH ×2 (08:26→17:45)
[2019-05-01] MEDS: PANTOPRAZOLE SOD 40 MG TABEC PO SCH (08:26)
[2019-05-01] MEDS: CLOPIDOGREL BISULFATE 75 MG TAB PO SCH (08:26)
[2019-05-01] MEDS: FAMOTIDINE 20 MG TAB PO SCH ×2 (08:26→21:21)
[2019-05-01] MEDS: SOLIFENACIN SUCCINATE 5 MG TAB PO SCH (08:26)
[2019-05-01] MEDS: HYDROXYZINE HCL 25 MG TAB PO SCH (08:26)
[2019-05-01] MEDS: OLMESARTAN 20 MG TAB PO SCH (08:26)
[2019-05-01] MEDS: ASPIRIN 81 MG ENTERIC COATED PO SCH (08:26)
[2019-05-01] MEDS: METFORMIN HCL 500 MG TAB CR PO SCH ×2 (08:26→17:45)
--- NOTE | 2019-05-01 09:12 | Diagnostic Imaging Report ---
EXAM: CT Abdomen WITHOUT contrast INDICATION: ^abdominal pain ^[id number] ^0835 COMPARISON: None. TECHNIQUE: Abdomen was scanned utilizing a multidetector helical scanner without administration of IV contrast. Absence of intravenous contrast decreases sensitivity for detection of focal lesions and vascular pathology. Coronal and sagittal reformations were obtained. Routine protocol was performed. IV CONTRAST: None. ORAL CONTRAST: None RADIATION DOSE: Total DLP: For a 1.7 mGy*cm Estimated effective dose: (DLP x 0.015 x size factor) mSv COMPLICATIONS: None FINDINGS: LINES and TUBES: None. LOWER THORAX: Subsegmental atelectasis in both lung bases. Moderate calcifications of the visualized descending thoracic aorta. Diffuse coronary artery calcifications. Right coronary artery stent in place. Trace bilateral pleural effusion. HEPATOBILIARY: Hepatic steatosis. No focal hepatic lesions. No biliary ductal dilation. GALLBLADDER: Cholecystectomy. SPLEEN: No splenomegaly. PANCREAS: No focal masses or ductal dilatation. ADRENALS: No adrenal nodules KIDNEYS/URETERS: No hydronephrosis. No cystic or solid mass lesions. No stones. Mild nonspecific bilateral, right greater than left, perinephric fat stranding. GI TRACT: No abnormal distention, wall thickening, or evidence of bowel obstruction. Appendix is normal. PELVIC ORGANS/BLADDER: Unremarkable. LYMPH NODES: No lymphadenopathy. VESSELS: The abdominal aorta is normal in caliber and associated with moderate nonobstructing atherosclerotic calcifications. PERITONEUM / RETROPERITONEUM: No free air or fluid. BONES: Moderate degenerative changes of the lumbar spine. SOFT TISSUES: Unremarkable. IMPRESSION: 1. Mild bilateral nonspecific perinephric fat stranding related to ascending urinary tract infection. 2. Otherwise, no acute abnormality within the abdomen. Signed by: Dr. Deanna Addison M.D. on 05/01/2019 9:09 AM
--- NOTE | 2019-05-01 09:32 | NUR ---
SNF WU ORDERED ON 04/29 PT WANTS MED RESORT CALL PLACED TO JEMIMA WITH MED RESORT TO SEE IF SHE COULD ACCEPT PT TODAY
[2019-05-01 11:31] VITALS: BP 147/65
--- NOTE | 2019-05-01 13:38 | Progress Note ---
DATE: Internal Medicine Progress Note SUBJECTIVE: She is complaining of pain in the ribcage on the left side, which is sharp in nature, very typical of costochondral pain. PHYSICAL EXAMINATION: VITAL SIGNS: Blood pressure is 201/84, temperature 96.6, heart rate 64 per minute, respiratory rate 21 per minute, oxygen saturation 96%. HEART: Showed regular rhythm. Normal S1 and S2 sound. LUNGS: Clear bilaterally. ABDOMEN: Soft. EXTREMITIES: Show no evidence of cyanosis, edema, or trauma. She has tenderness on the left chondrocostal area. LABORATORY DATA: On the BMP; sodium 136, potassium 3.8, chloride 104 CO2 of 25, BUN 18, creatinine 0.84, glucose 235. On the CBC, white count 6.06, hemoglobin 8.9, hematocrit 29.9, platelet count 207,000. AST 20, ALT 19, total bilirubin 0.2, alkaline phosphatase 42. FINAL IMPRESSION: 1. Coronary artery disease status post stent placement. 2. Uncontrolled diabetes mellitus type 2. 3. Hypertensive urgency. Her blood pressure is high. 4. Anemia of chronic disease. 5. Obesity. 6. Costochondral pain. PLAN OF TREATMENT: We are going to discontinue the IV fluids. Continue aspirin 81 mg daily, Pepcid 20 mg twice a day. Continue Benicar 20 mg daily, which we are going to increase to 40 mg daily due to uncontrolled hypertension. Continue Crestor 10 mg daily, metformin 1000 mg twice a day, Plavix 75 mg daily. Continue monitoring blood sugar before meals and at bedtime. Continue [place] 1 tablet q.6 hours as needed for pain, Toradol 30 mg IV q.6 hours as needed, Singulair 10 mg daily, tramadol 50 mg q.6 hours as needed, Ambien 5 mg at night p.r.n. for sleep, glimepiride 2 mg twice a day, Protonix 40 mg daily, amlodipine 5 mg twice a day, clonidine 0.1 mg q.6 hours as needed for hypertension, Zofran 4 mg IV q.6 hours as needed, hydralazine 25 mg daily and VESIcare 5 mg daily. MD ZANE Cavanaugh/MODL /[id number]
--- NOTE | 2019-05-01 13:53 | NUR ---
Patient discharged, supposed to go to [facility], bed not available yet as insurance and clinicals being processed waiting for approval.
--- NOTE | 2019-05-01 14:08 | NUR ---
CLINICALS FAXED TO [facility] AT [phone]; CONFIRMATION REC'D JEMIMA IS UNABLE TO GO TO FACILITY AND REVIEW CLINICALS AND VERIFY BENEFITS DUE TO TRANSPORTATION ISSUES SHE WILL CALL AND ASK NURSING DRILLING SUPERINTENDENT TO REVIEW CLINICALS AND IF APPROVED WILL CALL THE NURSES STATIONS WITH ROOM NUMBER IF APPROVED JEMIMA WILL CALL NURSES STATION WITH MOT RTF IN [place] NURSE BERTIN UPDATED ON STATUS
[2019-05-01 16:06] VITALS: BP 149/67
--- NOTE | 2019-05-01 18:55 | NUR ---
GOT REPORT FROM PREVIOUS NURSE. CALL LIGHT WITHIN REACH. PATIENT IN BED.
[2019-05-01 20:00] VITALS: BP_SYST 145; BP_SYST 146; BP_DIAS 67
[2019-05-01] MEDS: CRESTOR 10MG PO SCH (21:21)
[2019-05-01] MEDS: MONTELUKAST SODIUM 10 MG TAB PO SCH (21:21)
[2019-05-02] VITALS: BP 125/69
[2019-05-02 04:00] VITALS: BP 131/75
[2019-05-02] MEDS: INSULIN REGULAR, HUMAN 100 UNIT/1 ML 3ML VIAL SQ SCH ×4 (07:30→21:24)
--- NOTE | 2019-05-02 07:30 | NUR ---
Gave report to oncoming nurse. Call light within reach. Patient in bed.
[2019-05-02 07:34] VITALS: BP 165/71
[2019-05-02] MEDS: HYDROXYZINE HCL 25 MG TAB PO SCH (11:22)
[2019-05-02] MEDS: FAMOTIDINE 20 MG TAB PO SCH ×2 (11:35→21:23)
[2019-05-02] MEDS: AMLODIPINE BESYLATE 5 MG TAB PO SCH ×2 (11:35→17:21)
[2019-05-02] MEDS: OLMESARTAN 20 MG TAB PO SCH ×2 (11:35→11:40)
[2019-05-02] MEDS: CLOPIDOGREL BISULFATE 75 MG TAB PO SCH (11:35)
[2019-05-02] MEDS: PANTOPRAZOLE SOD 40 MG TABEC PO SCH (11:35)
[2019-05-02] MEDS: SOLIFENACIN SUCCINATE 5 MG TAB PO SCH (11:35)
[2019-05-02] MEDS: ASPIRIN 81 MG ENTERIC COATED PO SCH (11:36)
[2019-05-02 11:38] VITALS: BP 145/65
[2019-05-02] MEDS: METFORMIN HCL 500 MG TAB CR PO SCH ×2 (11:39→17:21)
[2019-05-02] MEDS: GLIMEPIRIDE 2 MG TAB PO SCH ×2 (11:39→17:21)
--- NOTE | 2019-05-02 12:08 | Progress Note ---
DATE: Internal Medicine Progress Note SUBJECTIVE: The patient is doing well today. PHYSICAL EXAMINATION: HEART: Showed regular rhythm. Normal S1, S2 sound. LUNGS: Clear bilaterally. ABDOMEN: Soft. VITAL SIGNS: Blood pressure 165/71, temperature 38.2, heart rate 56 per minute, respiratory rate 18 per minute, O2 saturation 98%. LABORATORY DATA: On the BMP; sodium 136, potassium 3.8, chloride 104, CO2 25, BUN 18, creatinine 0.94, glucose 235. On CBC; white count 6.06, hemoglobin 9.9, hematocrit 29.9, platelet count 207,000. AST 20, ALT 19, total bilirubin 0.2, alkaline phosphatase 42. IMPRESSION: 1. Coronary artery disease, status post stent placement. 2. Uncontrolled diabetes mellitus type 2. 3. Hypertensive urgency. 4. Anemia of chronic disease. PLAN OF TREATMENT: Continue aspirin 81 mg daily, Pepcid 20 mg twice a day. Continue monitoring blood sugar before meals and at bed time. Continue [place] 1 tablet q.6 hours as needed for severe pain, glimepiride 2 mg twice a day, Protonix 40 mg daily, amlodipine 5 mg twice a day, Ambien 5 mg at night p.r.n. for sleep, hydroxyzine 25 mg daily as needed for itching, VESIcare 5 mg daily. We have increased the Benicar to 40 mg daily due to uncontrolled hypertension. Continue clonidine 0.1 mg q.6 hours as needed for hypertension, Zofran 4 mg IV q.4 hours as needed, metformin 1000 mg twice a day, Plavix 75 mg daily. Continue with Crestor 10 mg daily, Singulair 10 mg daily, and tramadol 50 mg q.6 hours as needed. MD ZANE Cavanaugh/MODL /[id number]
--- NOTE | 2019-05-02 13:43 | NUR ---
CALL RECEIVED FOR HEMA RODRIGUEZ REGARDING TXF TO MED RESORT. CALL TO JEMIMA. NO ANSWER; LEFT VM. CALL TO MED RESORT. SPOKE W PAT IN ADMIN. STATES THE CLINICALS HAD NOT BEEN REVIEWED TO ACCEPT THE PT. STATES THEY WILL REVIEW IN THE AM AND INFORM CM AT THAT TIME. HEMA RODRIGUEZ / BEDSIDE NURSE NOTIFIED.
[2019-05-02 15:28] VITALS: BP 130/65
--- NOTE | 2019-05-02 19:00 | NUR ---
RECEIVED REPORT FROM PREVIOUS NURSE. CALL LIGHT WITHIN REACH. PATIENT IN BED.
[2019-05-02 20:00] VITALS: BP 164/72
[2019-05-02] MEDS: CRESTOR 10MG PO SCH (21:22)
[2019-05-02] MEDS: MONTELUKAST SODIUM 10 MG TAB PO SCH (21:23)
[2019-05-03] VITALS: BP 132/60
[2019-05-03 04:00] VITALS: BP 125/59
--- NOTE | 2019-05-03 07:20 | NUR ---
GAVE REPORT TO ONCOMING NURSE. CALL LIGHT WITHIN REACH. PATIENT IN BED.
[2019-05-03 08:00] VITALS: BP 136/65
[2019-05-03 08:30] VITALS: BP 136/65
[2019-05-03] MEDS: PANTOPRAZOLE SOD 40 MG TABEC PO SCH (08:30)
[2019-05-03] MEDS: CLOPIDOGREL BISULFATE 75 MG TAB PO SCH (08:30)
[2019-05-03] MEDS: METFORMIN HCL 500 MG TAB CR PO SCH (08:30)
[2019-05-03] MEDS: SOLIFENACIN SUCCINATE 5 MG TAB PO SCH (08:30)
[2019-05-03] MEDS: HYDROXYZINE HCL 25 MG TAB PO SCH (08:30)
[2019-05-03] MEDS: GLIMEPIRIDE 2 MG TAB PO SCH (08:30)
[2019-05-03] MEDS: INSULIN REGULAR, HUMAN 100 UNIT/1 ML 3ML VIAL SQ SCH (08:30)
[2019-05-03] MEDS: AMLODIPINE BESYLATE 5 MG TAB PO SCH (08:30)
[2019-05-03] MEDS: OLMESARTAN 20 MG TAB PO SCH ×2 (08:30→09:00)
[2019-05-03] MEDS: ASPIRIN 81 MG ENTERIC COATED PO SCH (08:30)
[2019-05-03] MEDS ORDERED: ONDANSETRON HCL 4 MG ORAL DISINTEGRATING TAB PO PRN (09:00)
[2019-05-03] MEDS: FAMOTIDINE 20 MG TAB PO SCH (09:35)
--- NOTE | 2019-05-03 10:30 | NUR ---
room received for patient transfer to [facility]. patient aware of upcoming change and ambulance transfer form signed. Report called to RN at [facility] for patient transfer.
--- NOTE | 2019-05-03 11:17 | NUR ---
PT ACCEPTED TO [facility] AREA ROOM [address] [facility] CARE CALL REPORT TO [phone]. INFORMATION GIVEN TO NURSE TO COMPLETE TRANSFER.
--- NOTE | 2019-05-03 11:17 | NUR ---
EDUCATED ABOUT IMM, SIGNED, FILED IN CHART, WITH COPY LEFT WITH FAMILY AT BEDSIDE.
[2019-05-03 11:55] VITALS: BP 165/79
--- NOTE | 2019-05-03 12:07 | NUR ---
patient alert and oriented, EMS here to pick patient up for transfer at this time. IV discontinued, catheter in tact and small dressing applied.
== END 2019-05-03 12:07 | DRG 247 ==
LOC: ER 20:52 → ERHOLD 22:32 → MED/SURG 23:59 → OBSVTOIN 04-28 10:17
PROC: 027034Z Dilation of Coronary Artery, One Artery with Drug-eluting Intraluminal Device, Percutaneous Approach (ICD-10-PCS; principal; 2019-04-28)
PROC: 4A023N7 Measurement of Cardiac Sampling and Pressure, Left Heart, Percutaneous Approach (ICD-10-PCS; 2019-04-28)
PROC: B2111ZZ Fluoroscopy of Multiple Coronary Arteries using Low Osmolar Contrast (ICD-10-PCS; 2019-04-28)
DX: I25.110 Atherosclerotic heart disease of native coronary artery with unstable angina pectoris (principal); I69.351 Hemiplegia and hemiparesis following cerebral infarction affecting right dominant side; E11.65 Type 2 diabetes mellitus with hyperglycemia; D63.8 Anemia in other chronic diseases classified elsewhere; E66.9 Obesity, unspecified; Z68.31 Body mass index [BMI] 31.0-31.9, adult; K21.9 Gastro-esophageal reflux disease without esophagitis; E78.5 Hyperlipidemia, unspecified; I25.10 Atherosclerotic heart disease of native coronary artery without angina pectoris; Z95.5 Presence of coronary angioplasty implant and graft; M19.90 Unspecified osteoarthritis, unspecified site; E78.00 Pure hypercholesterolemia, unspecified; I10 Essential (primary) hypertension
CPT/HCPCS: 36415; 71045; 74150; 80053; 80061; 81001; 82550; 82553; 82948; 83880; 84484; 85025; 92928; 93005; 93458; 97139; 99284; C1725; C1766; C1874; G0378; J0583; J1817; J1885; J2001; J2250; J2405; J3010; J3410; J7030; Q9967

== ENCOUNTER 2019-10-18 18:06 | Emergency (ER) | payer MEDICARE, BC ==
[~2019-10-18] VITALS: Ht 160 cm; Wt 79.4 kg
[~2019-10-18 18:06] MED LIST changes: +ASPIR 8181 MG PO; +CRESTOR10 MG PO
[2019-10-18 20:09] LABS: BASOPHILS % 0.3 % (0.0-1.0); EOSINOPHILS # (AUTO) 0.1 (0.0-0.4); EOSINOPHILS % 1.4 % (0.0-6.0); HEMATOCRIT 31.2 % (34.2-44.1); HEMOGLOBIN 10.3 g/dL (12.0-16.0); LYMPHOCYTES # (AUTO) 2.1 (1.0-3.2); MEAN CORPUSCULAR VOLUME 78.8 fL (81-99); MONOCYTES # (AUTO) 0.7 (0.2-0.8); MONOCYTES % 7.6 % (4.4-11.3); NEUTROPHILS # (AUTO) 5.8 (2.1-6.9); NEUTROPHILS % 66.5 % (38.7-80.0); PLATELET COUNT 296 x10e3/uL (140-360); RED BLOOD COUNT 3.96 x10e6/uL (3.6-5.1)
[2019-10-18 20:27] LABS: ALANINE AMINOTRANSFERASE 28 IU/L (0-55); ALBUMIN 3.8 g/dL (3.5-5.0); ALBUMIN/GLOBULIN RATIO 1.2 (0.8-2.0); ALKALINE PHOSPHATASE 54 IU/L (40-150); ANION GAP 16.6 mmol/L (8-16); BLOOD UREA NITROGEN 26 mg/dL (7-26); BUN/CREATININE RATIO 30 (6-25); CALCIUM 9.2 mg/dL (8.4-10.2); CARBON DIOXIDE 23 mmol/L (22-29); CHLORIDE 103 mmol/L (98-107); CREATINE KINASE 113 IU/L (29-168); CREATININE, SERUM 0.87 mg/dL (0.57-1.11); EST GLOMERULAR FILTRATION RATE > 60 ML/MIN (60-); GLUCOSE 137 mg/dL (74-118); POTASSIUM 3.6 mmol/L (3.5-5.1); SODIUM 139 mmol/L (136-145)
--- NOTE | 2019-10-18 21:58 | Diagnostic Imaging Report ---
EXAMINATION: CHEST 2 VIEWS INDICATION: ^SOB ^[id number] ^2012 ^Y COMPARISON: 04/27/2019. FINDINGS: TUBES and LINES: None. LUNGS: Lungs are well inflated. Mild bibasilar atelectasis. Tiny nodular densities again projected on the right upper lobe laterally. There is mild prominence of the central pulmonary vasculature, consistent with pulmonary venous congestion. PLEURA: No pleural effusion or pneumothorax. HEART AND MEDIASTINUM: Cardiac size is mildly enlarged. There are atherosclerotic calcifications within the aorta, and folded, unchanged. BONES AND SOFT TISSUES: No acute osseous lesion. Soft tissues are unremarkable. UPPER ABDOMEN: No free air under the diaphragm. IMPRESSION: Mild prominence of the central pulmonary vasculature, consistent with pulmonary venous congestion. Signed by: Dr. Tamie Moncada M.D. on 10/18/2019 9:55 PM
== END 2019-10-18 21:55 | disposition home or self-care (01) ==
LOC: ER 18:06
DX: R06.00 Dyspnea, unspecified (principal); I10 Essential (primary) hypertension; E11.9 Type 2 diabetes mellitus without complications; E78.00 Pure hypercholesterolemia, unspecified; Z86.73 Personal history of transient ischemic attack (TIA), and cerebral infarction without residual deficits
CPT/HCPCS: 36415; 71046; 80053; 82550; 82553; 83880; 84484; 85025; 93005; 99283

== ENCOUNTER → 2019-10-22 | Outpatient (CLI) | payer MEDICARE, BC | LOC: RAD 09:40 | DX: R06.02 Shortness of breath (principal); R06.09 Other forms of dyspnea; E11.9 Type 2 diabetes mellitus without complications | CPT/HCPCS: 93306 ==